=== PATIENT | male | born 1985 | race Two or more races ===

== ENCOUNTER 2021-08-27 17:45 | Emergency (ER) | payer OTHER ==
[2021-08-27] MEDS ORDERED: NORCO 5-325 TA1 EACH PO (20:26)
[2021-08-27] MEDS ORDERED: VIBRAMYCIN100 MG PO (20:26)
== END 2021-08-27 21:02 | disposition home or self-care (01) ==
LOC: FER 17:45
DX: S01.81XA Laceration without foreign body of other part of head, initial encounter (principal); S51.012A Laceration without foreign body of left elbow, initial encounter; F17.210 Nicotine dependence, cigarettes, uncomplicated; Z23 Encounter for immunization; W12.XXXA Fall on and from scaffolding, initial encounter; Y92.89 Other specified places as the place of occurrence of the external cause; Y99.0 Civilian activity done for income or pay
CPT/HCPCS: 70450; 72125; 73080; 73130; 90471; 90715